=== PATIENT | male | born 1965 | race Caucasian/White ===

== ENCOUNTER → 2017-10-09 | Day surgery (SDC) | payer BC ==
--- NOTE | 2017-10-08 15:38 | Diagnostic Imaging Report ---
PROCEDURE: Frontal and lateral views of the chest. COMPARISON: 03/25/17 INDICATIONS: PRE OP FINDINGS: Lines/tubes: None. Lungs: The lungs are well inflated and clear. There is no evidence of pneumonia or pulmonary edema. Pleura: There is no pleural effusion or pneumothorax. Heart and mediastinum: The heart and the mediastinum are normal. Bones: No acute bony abnormality. IMPRESSION: 1. No acute cardiopulmonary disease. Dictated by: Trevin Bowles M.D. on 10/08/2017 at 15:46 Electronically approved by: Trevin Bowles M.D. on 10/08/2017 at 15:46
[~2017-10-09] MED LIST: ACETAMINOPHEN 1000 MG/100 ML 100 ML IV ONE; ACETAMINOPHEN 1000 MG/100 ML IV PRN; ACETAMINOPHEN 1000 MG/100 ML IV SCH; ACETAMINOPHEN 650 MG SUPP PR PRN; BACITRACIN 50,000 UNIT VIAL ONE; BUPIVACAINE HCL 0.5% INJ 30 ML VIAL INJ ONE; CEFAZOLIN SOD 1 GM/NS 50ML 50 ML IV ONE; CELECOXIB 100 MG CAP PO SCH; DEXAMETHASONE SOD PHOS INJ 4 MG/ML VIAL ONE; DIPHENHYDRAMINE HCL INJ 50 MG/ML VIAL IM/IV PRN; DOCUSATE SODIUM 100 MG CAP PO PRN; FENTANYL CITRATE/PF 100MCG/2 ML INJ ONE; HYDROCODONE/APAP 5MG-325MG TAB PO PRN; HYDROCODONE/APAP 7.5MG-325MG 1 EA TAB ONE; HYDROCODONE/APAP 7.5MG-325MG 1 EA TAB PO PRN; HYDROMORPHONE 2MG/ML INJ ONE; KETOROLAC TROMETHAMINE 30 MG/ML VIAL IV PRN; LIDOCAINE HCL 2% LOCAL INJ 5 ML SDV VIAL INJ ONE; MIDAZOLAM HCL 2 MG/2 ML VIAL ONE; MORPHINE SULFATE INJ 10 MG/ML ONE; MUPIROCIN 2% OINT 22 GM TUBE ONE; ONDANSETRON HCL INJ 2 MG/ML VIAL IV PRN; ONDANSETRON HCL INJ 2 MG/ML VIAL ONE; PROMETHAZINE HCL (IM) 25 MG/ML VIAL INJ PRN; PROPOFOL IV EMULSION 10 MG/ML 20 ML VIAL ONE; SEVOFLURANE INHAL SOLN 250 ML PEN BTL ONE; TYLENOL WITH C1 EACH PO; ZOLPIDEM TARTRATE 5 MG TAB PO PRN
--- NOTE | 2017-10-09 14:58 | Operative Report ---
DATE OF PROCEDURE: October 09, 2017 LIST OF FIRST JOB IDEAS: Alonzo Mederos PA-C The patient was brought to the operating room for induction of anesthesia. Throughout this case, my PA's assistance was necessary for retraction of soft tissue and positioning of the extremity. This allows for efficient and technically successful execution of the operation and is considered medically necessary. PREOPERATIVE DIAGNOSIS: Right tibial pilon fracture. POSTOPERATIVE DIAGNOSIS: Right tibial pilon fracture. PROCEDURE: Open reduction and internal fixation with additional intramedullary nail placement, right tibial pilon fracture. INDICATIONS: The patient is a 52-year-old gentleman who sustained a severe fracture of the lower right tibia. The findings and options have been discussed. The fracture extends into the tibiotalar joint. He is a heavy smoker. We have discussed how this influences our decision-making with regard to internal fixation. We plan on limited internal fixation with placement of an intramedullary nail. The risks and benefits have been discussed. He states he understands and wishes to proceed. DESCRIPTION OF PROCEDURE: The patient was brought to the operating room and placed under general anesthetic. His right lower extremity was prepped and draped in a sterile manner. He received prophylactic antibiotics in the holding area. A preoperative time out was performed. The extremity was carefully exsanguinated, and a proximal tourniquet was inflated to 300 mmHg. A C-arm image intensifier was used to assess the fracture. The intra-articular portion of the fracture remained essentially nondisplaced. I elected to place a medial to lateral 3.5-mm cortical screw to lessen the likelihood of propagation of the fracture and displacement. Using the C-arm image intensifier, a 2.5 drill was placed just above the subchondral bone. A cortical screw was placed with a washer. Nice bone quality was encountered. We elected then to attempt to place an intramedullary nail. An incision was made over the anterior superior tibia. This was carried down through the patellar tendon. A curved awl was used to enter the proximal medullary canal. A beaded guide pin was then placed down the tibial canal and across the fracture site. Positioning was confirmed in the AP and lateral plane using a C-arm image intensifier. Efforts were then made to over-ream the fracture. I carefully over-reamed the fracture to 10 mm. This encountered significant endosteal clatter. I did not believe that we could go up any higher. A 36-cm x 8.5-mm nail was then carefully passed across the fracture site and into the distal tibia. The fractures remained without further displacement. We locked this proximally with 2 screws and distally with an additional 3 screws. Final x-rays confirmed anatomic alignment of the articular surface and good positioning of the tibial fracture. The wounds were all irrigated and closed, and #0 Vicryl was used to reapproximate the patellar tendon. Subcuticular Vicryl and obed were used to close the skin. A sterile bandage and splint were applied. The patient was extubated and transported to the recovery room in stable condition. Blood loss was less than 50 mL, and all needle and sponge counts were correct. Job#: [id number]
== END | disposition home or self-care (01) ==
LOC: OR 08:53
PROVIDERS: ATTEND Specialist
DX: S82.871A Displaced pilon fracture of right tibia, initial encounter for closed fracture (principal); S82.231A Displaced oblique fracture of shaft of right tibia, initial encounter for closed fracture; S82.61XA Displaced fracture of lateral malleolus of right fibula, initial encounter for closed fracture; R05 Cough; F17.200 Nicotine dependence, unspecified, uncomplicated; W18.49XA Other slipping, tripping and stumbling without falling, initial encounter; Z01.810 Encounter for preprocedural cardiovascular examination; Z01.818 Encounter for other preprocedural examination
CPT/HCPCS: 27827; 71046; 76001; 93005; 97116; 97161; C1713 ×2; J1100; J1170; J2001; J2250; J2270; J2405